=== PATIENT | female | born 1955 | race Asian ===

== ENCOUNTER 2017-06-15 05:24 | Day surgery (SDC) | payer OTHER ==
[~2017-06-15] VITALS: Ht 154.9 cm; Wt 49.0 kg
--- NOTE | ~2017-06-15 | O ---
[facility] [place] [address] OPERATIVE REPORT Name: SUNNY MORRISON Room #: 150-1 [facility]..#: [id number] Admission: 06/15/17 Attend Phys: Сергей Haas MD Discharge: Date of : 51 Report #: [id number] THIS REPORT FOR: //name// CC: Сергей Flaherty DATE OF SURGERY: 06/15/2017. PREOPERATIVE DIAGNOSES: Nasal septal deformity, turbinate hypertrophy. POSTOPERATIVE DIAGNOSES: Nasal septal deformity, turbinate hypertrophy. PROCEDURES: Septoplasty, inferior turbinate submucous resection and outfracturing. SURGEON: Сергей Haas M.D. ANESTHESIA: General oral endotracheal. INDICATIONS: See history and physical. FINDINGS: The quadrangular cartilage had an S-shaped deformity inferiorly on the left side and overcorrected to the right side superiorly and right greater than left turbinate hypertrophy was noted. TECHNIQUE: After obtaining consent, she was brought to the operating suite, appropriate timeout was performed. General oral endotracheal anesthesia was obtained. Bed was turned 90 degrees. Nose was prepped and draped in usual sterile fashion, 6 mL of 1% Xylocaine 1:100,000 epinephrine was injected on each side of the septum. Later in the case, an additional 2 mL was injected submucosally in each inferior turbinate, care being made not to inject intravascularly. A right-sided hemitransfixion was performed. I elevated mucosa off the quadrangular cartilage and the vomer and perpendicular plate on the left side. A generous portion of the inferior and posterior cartilaginous septum was removed sharply elevating mucosal flap on the right side. Care was made to leave enough anteriorly and superiorly for adequate tip support. The bony cartilaginous junction was disarticulated and full mucosal flaps elevated on the right side. Crocker-Mann punches and scissors were then used to remove the superior portion of the deviation of the quadrangular cartilage and some of the vomer inferiorly. A 4 mm chisel was used to take down the maxillary crest to a flat straight area. I made a small incision on the mucosa on the left side to allow for postoperative drainage purposes. Previously harvested cartilage was trimmed, morcellized and placed back between the septal folds. The hemitransfixion incision was closed with simple interrupted 4-0 chromic suture. Simple splints were designed and fashioned by myself, placed on each side of the [address] [address] OPERATIVE REPORT Name: SUNNY MORRISON Room #: 150-1 [facility]..#: [id number] Admission: 06/15/17 Attend Phys: Сергей Haas MD Discharge: Date of : 51 Report #: [id number] septum and secured with a single 3-0 Prolene suture. The inferior turbinates were addressed by using a small caudal elevator to elevate a submucosal flap on the medial and medial inferior surface and the [employer] submucous resection blade was then used to submucosa removed tissue in the medial and medial inferior surfaces to effect. Each inferior turbinate was then outfractured. Merogel was trifolded and placed between the septal splint and the inferior turbinates to prevent any synechia formation. Nasopharynx was suctioned free of secretions. She was allowed to wake from anesthesia and taken to recovery room in stable condition. ESTIMATED BLOOD LOSS: 10 mL. <ELECTRONICALLY SIGNED> By: Сергей Haas MD 06/15/17 0927 [id number] Сергей Haas MD /maureen
[~2017-06-15 05:24] MED LIST: ALENDRONATE SOD70 MG PO; ENBREL50 MG/1 M1 SQ; METFORMIN HCL500 MG PO; METHOTREXA25 MG/1 ML IJ; MOBIC15 MG PO; MULTI VITAMIN1 EACH PO; NORCO 5-325 TA1 EACH PO; ZOFRAN ODT4 MG PO
[2017-06-15 07:00] VITALS: BP 141/75
[2017-06-15 08:57] VITALS: BP 141/75
== END 2017-06-15 09:58 | disposition home or self-care (01) ==
LOC: OR 05:24 → TBA 05:25 → OR 09:31
DX: J34.2 Deviated nasal septum (principal); J34.3 Hypertrophy of nasal turbinates; E11.9 Type 2 diabetes mellitus without complications; J45.909 Unspecified asthma, uncomplicated; M19.90 Unspecified osteoarthritis, unspecified site; Z98.890 Other specified postprocedural states; Z79.899 Other long term (current) drug therapy
CPT/HCPCS: 50010; 50101; 50386; 50398; 50951; 51316; 51634; 53635; 56526; 56528; 62110; 62900; 70005

== ENCOUNTER → 2019-01-27 | Outpatient (CLI) | payer OTHER ==
[2019-01-27 15:00] LABS: CREATININE 0.6 mg/dL (0.6-1.0)
== END ==
LOC: LABMALL 14:33
PROVIDERS: Nurse Practitioner
DX: R10.31 Right lower quadrant pain (principal)

== ENCOUNTER → 2019-01-30 | Outpatient (CLI) | payer OTHER | LOC: ULTRA 07:43 | DX: R10.11 Right upper quadrant pain (principal) ==